=== PATIENT | female | born 1995 | race American Indian/Alaskan Native ===

== ENCOUNTER 2019-02-19 01:23 | Emergency (ER) | payer OTHER ==
[~2019-02-19] VITALS: Ht 167.6 cm; Wt 99.8 kg
[2019-02-19 02:17] VITALS: BP 140/78; TEMP 98
== END 2019-02-19 02:22 | disposition home or self-care (01) ==
LOC: ED 01:23
DX: H66.001 Acute suppurative otitis media without spontaneous rupture of ear drum, right ear (principal); K04.7 Periapical abscess without sinus; K08.89 Other specified disorders of teeth and supporting structures
CPT/HCPCS: 96372; 99283; J1885